=== PATIENT | male | born 1955 | race Caucasian/White ===

== ENCOUNTER 2020-03-15 07:50 | Emergency (ER) | payer OTHER ==
[~2020-03-15] VITALS: Ht 182.9 cm; Wt 108.9 kg
--- NOTE | 2020-03-15 08:07 | NUR ---
PT AMBULATED TO ROOM FROM LOBBY.
--- NOTE | 2020-03-15 08:22 | NUR ---
PT RESTING IN [facility], NO COMPLAINTS AT THIS TIME.
[2020-03-15] MEDS ORDERED: DEXAMETHASONE 4 MG TABLET ONE (08:26)
[2020-03-15] MEDS ORDERED: DEXAMETHASONE 4 MG TABLET PO ONE (08:30)
--- NOTE | 2020-03-15 09:03 | NUR ---
PT'S CALLED, PER PATIENT IT IS OKAY TO SPEAK TO HER REGARDING POC. LEANNE () [phone].
[2020-03-15 09:54] VITALS: BP 114/87
--- NOTE | 2020-03-15 09:58 | NUR ---
Patient given discharge instructions and they have confirmed that they understand the instructions. Patient ambulatory with steady gait.
== END 2020-03-15 10:03 | disposition home or self-care (01) ==
LOC: ED 09:21
DX: J15.9 Unspecified bacterial pneumonia (principal); R51.9 Headache, unspecified
CPT/HCPCS: 71045; 93005; 99283